=== PATIENT | male | born 1990 | race Caucasian/White ===

== ENCOUNTER 2017-03-18 15:18 | Emergency (ER) | payer BC ==
[2017-03-18 15:44] LABS: URINE BILIRUBIN NEGATIVE (NEG); URINE BLOOD NEGATIVE (NEG); URINE GLUCOSE (UA) NEGATIVE (NEG); URINE KETONE NEGATIVE (NEG); URINE LEUKOCYTE ESTERASE NEGATIVE (NEG); URINE NITRITE NEGATIVE (NEG); URINE PROTEIN NEGATIVE (NEG); URINE SPECIFIC GRAVITY 1.015 (1.003-1.030)
[2017-03-18 15:45] LABS: URINE APPEARANCE CLEAR; URINE COLOR YELLOW
[2017-03-18] MEDS ORDERED: DEPAKOTE ER500 M1 PO (16:46)
[2017-03-18] MEDS ORDERED: RISPERDAL2 M2 PO (16:47)
[2017-03-18] MEDS ORDERED: SEROQUEL25 M2 PO (16:47)
[2017-03-18] MEDS ORDERED: TESTONE CI200 MG/1 M (16:48)
== END 2017-03-18 17:25 ==
LOC: EDMED 15:18
PROVIDERS: Emergency Medicine
DX: R30.0 Dysuria (principal)